=== PATIENT | male | born 1970 | race Caucasian/White ===

== ENCOUNTER 2020-04-27 07:16 | Outpatient (REF) | payer OTHER, SELFPAY | END 2020-04-27 07:17 | disposition home or self-care (01) | LOC: HO.LAB 07:16 | PROVIDERS: Visit Provider Internal Medicine | DX: Z20.828 Contact with and (suspected) exposure to other viral communicable diseases (principal) | CPT/HCPCS: C9803; U0003 ==

== ENCOUNTER 2021-06-01 14:36 | Outpatient (REF) | payer OTHER, SELFPAY ==
[2021-06-01 15:21] LABS: COVID-19 Test Negative (Negative)
== END 2021-06-01 14:37 | disposition home or self-care (01) ==
LOC: HO.LAB 14:36
PROVIDERS: Visit Provider Internal Medicine
DX: Z20.822 Contact with and (suspected) exposure to COVID-19 (principal)
CPT/HCPCS: 36415; 87635; C9803

== ENCOUNTER 2024-09-17 11:02 | Outpatient (AMB) | payer OTHER, SELFPAY ==
--- NOTE | 2024-09-17 11:28 | AM.OFFWIN_ITS ---
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 Patient Tobacco Use Status: Never used Tobacco Allergies No Known Allergies Allergy (Verified 09/17/24 11:30) Do you need a note to return to daycare/school/sports/work: No HPI HPI Comments History of Present Illness Details History of Present Illness - The patient is a 54-year-old male pres enting with abdominal discomfort and anxiety. - He reports abdominal tightness under t he sternum, particularly postprandial, linked to bread consumption, admitting he has a gluten sensitivity (not allergy) and doesn't normally eat gluten. - No exacerbation with physical activity ; soreness noted on palpation. - Also admitted to some lightheadedness and foot tingling, with symptoms improving after rest and relaxation for a few mins today. - Patient concerned about abdominal aort a pathology as his TRAE had issues with this but he has no symptoms suggestive of cardiac or radiating pain. He denies chest pain, chest pain which radiates to his neck shoulder or arm, arm numbness weakness or tingling, upper abdominal pain which radiates to his back or back pain in general. Denies any nausea or episodes of sweating or shortness of breath. - Hypertension is managed pharmacologica lly, has been taking his meds daily, including today. Has no other cardiac history and he does not see a leasing machine tender regularly. He only sees his primary care doctor. He did call his primary care doctor's office and they told him to come here to be evaluated. - Observes lower back soreness post-exer cise, attributed to body weight. - Does admit to issues with anxiety, miguel s not use any medications or therapy to control it. - feels much better now, says all of his symptoms resolved without intervention within 10 minutes. Physical Exam General: Cooperative, healthy appearing, comfortable, no acute distress and well developed Orientation: Patient oriented x3 Limitations: No limitations Head: Normal to inspection Ears: Hearing grossly normal bilaterally Nose: Normal External nose present Face and sinus: Normal facial exam Eyes: Appearance normal, both eyes and all related structures Neck: Normal visual inspection and Yes full ROM Respiratory: Normal respiratory effort and able to speak in complete sentences. Clear to auscultation bilaterally Cardiovascular: Regular rate and rhythm. Normal S1 and S2 GI: soft, no ttp, negative murphys Skin: No rashes or lesions noted Neuro: Patient oriented x3 Extremities: Normal to inspection [facility] Social History Patient Tobacco Use Status: Never used Tobacco Review of Systems Const All systems reviewed & are unremarkable except as noted in HPI and below Physical Exam Vital Signs: Last Vital Signs Pulse 77 09/17/24 11:29 BP 130/80 09/17/24 11:29 Pulse Ox 98 09/17/24 11:29 Oxygen Delivery Method Room Air 09/17/24 11:29 Assessment & Plan Assessment & Plan (1) Anxiety: Code(s): F41.9 - Anxiety disorder, unspecified Plan: VSS, pt well appearing and PE unremarkable. The patient's abdominal discomfort is likely linked to gluten sensitivity s/p eating bread this morning, aggravating postprandial episodes. This, coupled with his anxiety likely was a combination that led to a short panic attack. Anxiety management via hydroxyzine was discussed, noting drowsiness risk. Monitoring signs of abdominal discomfort and anxiety-related symptoms is prioritized. Despite declining an EKG, he was instructed to seek emergent care if serious symptoms arise. Recommended if patient develops any nausea with episodes of sweating, chest pain, chest pain which radiates to his back, neck pain, shoulder pain, arm pain or numbness and tingling in either arm, he should go to the emergency department for a thorough evaluation. None of these symptoms seemed to have happened today and patient feels fine during our visit so I do not think he needs emergency services at this time. Regular hypertension medication continues successfully. Consideration for an abdominal ultrasound or further gastrointestinal exploration was given for comprehensive assessment of discomfort, pending PCP consultation. Emphasized avoiding gluten, practicing relaxation techniques, and sustaining lifestyle modifications to reduce anxiety triggers. Patient was informed and verbally consented to the use of an ambient scribe for clinic note documentation during this visit. Medications: New hydroxyzine HCl 25 mg PO Q6-8H PRN 14 tabs 0RF anxiety Coding Level of Care Code New Pt Level 4 (90520) Diagnoses Anxiety F41.9
[2024-09-17 11:29] VITALS: BP 130/80; PULSE 77; O2SAT 98
--- OUTSIDE RECORDS SUMMARY | 2024-09-17 13:19 | XMS_ITS | Data Portability ---
Author Organization [facility], Main Office Address [address] [facility] [address] [place] [id number] Care Team Providers Care Central Communications Specialist Name Role Phone STACY WHEELER Primary Care Provider [phone] [facility] Food Service Worker Assessment No assessment recorded. Plan of Treatment Reminders Order Date Submit Date Provider Last Modified By Organization Details Last Modified Time Details Appointments FOLLOW UP 2024 03:15P M Stacy Wheeler MD Not available Not available Not available Lab magnes ium, serum or plasma 2023 [facility] (Centralized Electronic Ordering - All Locations), Patient Can Go To The Location Of Their Choice, [facility] 04/07/2024 13:22:03 lipid panel, serum 2023 [email or web address], [address], [address], [place], [address], 04/14/2024 10:05:06 CBC w/ auto diff 2023 [place] [facility], [address], [address], [place], [address], 04/07/2024 13:22:03 CMP, serum or plasma 2023 024 [place] [facility], [address], [address], [place], [address], 04/07/2024 13:22:04 TSH, ultra- sensit demetrius, serum 2023 024 [facility] (Centralized Electronic Ordering - All Locations), Patient Can Go To The Location Of Their Choice, [id number] 04/07/2024 13:22:04 BMP, serum or plasma 2023 024 [place] [facility], [address], [address], [place], [address], 12/13/2023 08:09:27 BMP, serum or plasma 2022 023 [place] [facility], [address], [address], [place], [address], 05/08/2023 15:27:50 CBC w/ auto diff 2022 023 [place] [facility], [address], [address], [place], [address], 04/05/2023 10:30:35 TSH, serum or plasma 2022 023 [place] [facility], [address], [address], [place], [address], 04/05/2023 10:49:32 CMP, serum or plasma 2022 023 [place] [facility], [address], [address], [place], [address], 04/05/2023 10:46:54 celiac diseas e compre hensiv e panel, serum 2022 023 [place] [facility], [address], [address], [place], [address], 04/07/2023 21:06:04 C-reac tive protei n, quanti tative , serum or plasma 2022 023 [place] [facility], [address], [address], [place], [address], 04/05/2023 10:46:56 lipid panel, serum 2022 023 [place] [facility], [address], [address], [place], [address], 04/05/2023 10:47:00 biliru bin, total + direct , serum or plasma 2022 023 [place] [facility], [address], [address], [place], [address], 04/06/2023 00:22:13 biliru bin, qualit ative, urine (OBS) 2022 023 [place] [facility], [address], [address], [place], [address], 04/05/2023 11:39:18 haptog lobin, serum 2022 023 [place] [facility], [address], [address], [place], [address], 04/05/2023 10:46:57 ldh, serum or plasma 2022 023 [place] [facility], [address], [address], [place], [address], 04/05/2023 10:46:58 retic count, blood 2022 023 [place] [facility], [address], [address], [place], [address], 04/05/2023 10:30:37 Referral dermat ologis t referr al - For skin check 2022 023 [email or web address] Not available 10/03/2023 09:09:01 Procedures cerume n remova l (PROC) 2022 023 [place] In-Office Order, Internal Use Only DO Not Attach Compendium DO Not Attach Compendium, Do Not Delete/merge, [id number] 05/08/2023 16:19:07 Surgeries None record ed. Imaging None record ed. Medication Orders Nadine tin 875 mg-125 mg tablet 2023 024 [id number], [address] [place] [address], [place], [address], 04/07/2024 13:07:24 Flonas e Sensim ist 27.5 mcg/ac tuatio n nasal spray, suspen tim 2023 024 [facility], [address] [place] [address], [place], [address], 04/07/2024 13:07:32 Saline Nasal 0.65 % spray aeroso l 2023 024 [facility], [address] [place] [address], [place], [address], 04/07/2024 13:08:11 valsar blanton 80 mg tablet 2022 023 [facility] [address] [place] [address], [place], [address], 07/11/2024 10:16:58 Debrox 6.5 % ear drops 2022 023 [email or web address] [facility] [address] [place] [address], [address], 12/12/2023 14:21:51 valsar blanton 40 mg tablet 2022 023 [facility] [address] [place] [address], [address], 12/12/2023 14:32:41 benzon atate 200 mg capsul e 2022 023 [facility], [address] [place] [address], [place], [address], 05/08/2023 15:00:13 Patient TargetsNo targets recorded. Patient Instructions Encounter Date Encounter Id Patient Instructions Last Modified By Organization Details Last Modified Time 04/02/2023 [id number] elevated blood pressure: care instructions [email or web address] Not available 04/02/2023 14:43:20 Well Visit 50 to 65: Care Instructions ckokar Not available 04/02/2023 14:43:19 starting a weigh t loss plan: care instructions ckokar Not available 04/02/2023 14:43:19 03/26/2024 [id number] Acute Sinusitis: Care Instructions ckokar Not available 03/26/2024 11:08:39 saline nasal washes: care instructions ckokar Not available 03/26/2024 11:08:39 high blood pressure: care instructions ckokar Not available 03/26/2024 11:08:39 learning about high blood pressure ckokar Not available 03/26/2024 11:08:39 04/07/2024 [id number] elevated blood pressure: care instructions ckokar Not available 04/07/2024 13:21:48 Well Visit 50 to 65: Care Instructions ckokar Not available 04/07/2024 13:21:48 starting a weigh t loss plan: care instructions ckokar Not available 04/07/2024 13:21:48 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 Referral for M elanocytic nevus of skin For skin check Referring Physician: Stacy Wheeler, Family Medicine, Encounter Date: 04/02/2023 Results Created Date Observation Date Name Description Value Unit Range Abnormal Flag Note LastModifiedBy Organization Detail LastModifiedTime 04/05/2004/05/2023 COMPL ETE CBC WITH DIFF WBC 4.7 K/mm3 (4.0-1 1.0) Not Available [facility] (Centralized Electronic Ordering - All Locations) Patient Can Go To The Location Of Their Choice, [id number] 04/05/2023 10:30:35 04/05/2004/05/2023 COMPL ETE CBC WITH DIFF RBC 5.21 M/mm3 (4.70- 6.10) Not Available [facility] (Centralized Electronic Ordering - All Locations) Patient Can Go To The Location Of Their Choice, [id number] 04/05/2023 10:30:35 04/05/2004/05/2023 COMPL ETE CBC WITH DIFF HGB 14.8 gm/dL (13.7- 17.1) Not Available [facility] (Centralized Electronic Ordering - All Locations) Patient Can Go To The Location Of Their Choice, 04/05/2023 10:30:35 04/05/2004/05/2023 COMPL ETE CBC WITH DIFF HCT 43.8 % (40.5- 50.0) Not Available [facility] (Centralized Electronic Ordering - All Locations) Patient Can Go To The Location Of Their Choice, 04/05/2023 10:30:35 04/05/2004/05/2023 COMPL ETE CBC WITH DIFF MCV 84.1 fL (80.0- 94.0) Not Available [facility] (Centralized Electronic Ordering - All Locations) Patient Can Go To The Location Of Their Choice, 04/05/2023 10:30:35 04/05/2004/05/2023 COMPL ETE CBC WITH DIFF MCH 28.4 pg (27.0- 34.0) Not Available [facility] (Centralized Electronic Ordering - All Locations) Patient Can Go To The Location Of Their Choice, 04/05/2023 10:30:35 04/05/2004/05/2023 COMPL ETE CBC WITH DIFF MCHC 33.8 g/dL (33.0- 37.0) Not Available [facility] (Centralized Electronic Ordering - All Locations) Patient Can Go To The Location Of Their Choice, 04/05/2023 10:30:35 04/05/2004/05/2023 COMPL ETE CBC WITH DIFF plt 314 K/mm3 (150-4 60) Not Available [facility] (Centralized Electronic Ordering - All Locations) Patient Can Go To The Location Of Their Choice, 04/05/2023 10:30:35 04/05/2004/05/2023 COMPL ETE CBC WITH DIFF RDW-SD 36.2 fL (<47.0 ) Not Available [facility] (Centralized Electronic Ordering - All Locations) Patient Can Go To The Location Of Their Choice, 04/05/2023 10:30:35 04/05/2004/05/2023 COMPL ETE CBC WITH DIFF MPV 9.8 fL (9.4-1 2.4) Not Available [facility] (Centralized Electronic Ordering - All Locations) Patient Can Go To The Location Of Their Choice, 04/05/2023 10:30:35 04/05/2004/05/2023 COMPL ETE CBC WITH DIFF automated NRBC 0.0 #/100 _WBC' s Not Available [facility] (Centralized Electronic Ordering - All Locations) Patient Can Go To The Location Of Their Choice, 04/05/2023 10:30:35 04/05/2004/05/2023 COMPL ETE CBC WITH DIFF abs. NRBC 0.0 K/mm3 Not Available [facility] (Centralized Electronic Ordering - All Locations) Patient Can Go To The Location Of Their Choice, 04/05/2023 10:30:35 04/05/2004/05/2023 COMPL ETE CBC WITH DIFF neut # 1.9 K/mm3 (1.3-7 .0) Not Available [facility] (Centralized Electronic Ordering - All Locations) Patient Can Go To The Location Of Their Choice, 04/05/2023 10:30:35 04/05/2004/05/2023 COMPL ETE CBC WITH DIFF lymph # 2.0 K/mm3 (0.8-3 .1) Not Available [facility] (Centralized Electronic Ordering - All Locations) Patient Can Go To The Location Of Their Choice, 04/05/2023 10:30:35 04/05/2004/05/2023 COMPL ETE CBC WITH DIFF mono# 0.5 K/mm3 (0.4-1 .3) Not Available [facility] (Centralized Electronic Ordering - All Locations) Patient Can Go To The Location Of Their Choice, 04/05/2023 10:30:35 04/05/2004/05/2023 COMPL ETE CBC WITH DIFF eo # 0.2 K/mm3 (0.0-0 .4) Not Available [facility] (Centralized Electronic Ordering - All Locations) Patient Can Go To The Location Of Their Choice, 04/05/2023 10:30:35 04/05/2004/05/2023 COMPL ETE CBC WITH DIFF baso # 0.1 K/mm3 (0.0-0 .1) Not Available [facility] (Centralized Electronic Ordering - All Locations) Patient Can Go To The Location Of Their Choice, 04/05/2023 10:30:35 04/05/2004/05/2023 COMPL ETE CBC WITH DIFF abs. imm gran 0.0 K/mm3 Not Available [facility] (Central[facility] Ordering - All Locations) Patient Can Go To The Location Of Their Choice, 04/05/2023 10:30:35 04/05/2004/05/2023 COMPL ETE CBC WITH DIFF neut 39.8 % (44-76 ) low Not Available [facility] (Centralized Electronic Ordering - All Locations) Patient Can Go To The Location Of Their Choice, 04/05/2023 10:30:35 04/05/2004/05/2023 COMPL ETE CBC WITH DIFF lymph 43.5 % (15-43 ) high Not Available [facility] (Centralized Electronic Ordering - All Locations) Patient Can Go To The Location Of Their Choice, 04/05/2023 10:30:35 04/05/2004/05/2023 COMPL ETE CBC WITH DIFF monocyte 11.1 % (4.5-1 0.5) high Not Available [facility] (Centralized Electronic Ordering - All Locations) Patient Can Go To The Location Of Their Choice, 04/05/2023 10:30:35 04/05/2004/05/2023 COMPL ETE CBC WITH DIFF eo 3.2 % (0-6) Not Available [facility] (Centralized Electronic Ordering - All Locations) Patient Can Go To The Location Of Their Choice, 04/05/2023 10:30:35 04/05/2004/05/2023 COMPL ETE CBC WITH DIFF baso 1.5 % (0-2) Not Available [facility] (Centralized Electronic Ordering - All Locations) Patient Can Go To The Location Of Their Choice, 04/05/2023 10:30:35 04/05/2004/05/2023 COMPL ETE CBC WITH DIFF imm gran 0.9 % Not Available [facility] (Centralized Electronic Ordering - All Locations) Patient Can Go To The Location Of Their Choice, 04/05/2023 10:30:35 04/05/2004/05/2023 RETIC ULOCY TE COUNT retic % 2.4 % (0.9-2 .1) high Not Available [facility] (Centralized Electronic Ordering - All Locations) Patient Can Go To The Location Of Their Choice, 04/05/2023 10:30:37 04/05/2004/05/2023 RETIC ULOCY TE COUNT reticulocyte count, corrected 2.3 % (0.9-2 .1) high Not Available [facility] (Centralized Electronic Ordering - All Locations) Patient Can Go To The Location Of Their Choice, 04/05/2023 10:30:37 04/05/2004/05/2023 RETIC ULOCY TE COUNT reticulocyte production index 2.3 % (1.0-2 .0) high Not Available [facility] (Centralized Electronic Ordering - All Locations) Patient Can Go To The Location Of Their Choice, 04/05/2023 10:30:37 04/05/2004/05/2023 COMPR EHENS DEMETRIUS METAB OLIC PANL glucose 94 mg/dL (70-99 ) Not Available [facility] (Centralized Electronic Ordering - All Locations) Patient Can Go To The Location Of Their Choice, 04/05/2023 10:46:54 04/05/2004/05/2023 COMPR EHENS DEMETRIUS METAB OLIC PANL BUN 12 mg/dL (6-20) Not Available [facility] (Centralized Electronic Ordering - All Locations) Patient Can Go To The Location Of Their Choice, 04/05/2023 10:46:54 04/05/2004/05/2023 COMPR EHENS DEMETRIUS METAB OLIC PANL creatinine 1.0 mg/dL (0.7-1 .2) Not Available [facility] (Centralized Electronic Ordering - All Locations) Patient Can Go To The Location Of Their Choice, 04/05/2023 10:46:54 04/05/2004/05/2023 COMPR EHENS DEMETRIUS METAB OLIC PANL sodium 140 mmol/ L (133-1 45) Not Available [facility] (Centralized Electronic Ordering - All Locations) Patient Can Go To The Location Of Their Choice, 04/05/2023 10:46:54 04/05/2004/05/2023 COMPR EHENS DEMETRIUS METAB OLIC PANL potassium 4.5 mmol/ L (3.6-5 .2) Not Available [facility] (Centralized Electronic Ordering - All Locations) Patient Can Go To The Location Of Their Choice, 04/05/2023 10:46:54 04/05/2004/05/2023 COMPR EHENS DEMETRIUS METAB OLIC PANL chloride 102 mmol/ L (98-10 7) Not Available [facility] (Centralized Electronic Ordering - All Locations) Patient Can Go To The Location Of Their Choice, 04/05/2023 10:46:54 04/05/2004/05/2023 COMPR EHENS DEMETRIUS METAB OLIC PANL bicarbonate 27 mmol/ L (22-29 ) Not Available [facility] (Centralized Electronic Ordering - All Locations) Patient Can Go To The Location Of Their Choice, 04/05/2023 10:46:54 04/05/2004/05/2023 COMPR EHENS DEMETRIUS METAB OLIC PANL anion gap 11 (4-17) Not Available [facility] (Centralized Electronic Ordering - All Locations) Patient Can Go To The Location Of Their Choice, 04/05/2023 10:46:54 04/05/2004/05/2023 COMPR EHENS DEMETRIUS METAB OLIC PANL albumin 5.0 gm/dL (3.4-4 .8) high Not Available [facility] (Centralized Electronic Ordering - All Locations) Patient Can Go To The Location Of Their Choice, 04/05/2023 10:46:54 04/05/2004/05/2023 COMPR EHENS DEMETRIUS METAB OLIC PANL calcium 9.8 mg/dL (8.6-1 0.5) Not Available [facility] (Centralized Electronic Ordering - All Locations) Patient Can Go To The Location Of Their Choice, 04/05/2023 10:46:54 04/05/2004/05/2023 COMPR EHENS DEMETRIUS METAB OLIC PANL bilirubin,to josué 1.6 mg/dL (0-1.2 ) high Not Available [facility] (Centralized Electronic Ordering - All Locations) Patient Can Go To The Location Of Their Choice, 04/05/2023 10:46:54 04/05/2004/05/2023 COMPR EHENS DEMETRIUS METAB OLIC PANL total protein 7.4 gm/dL (6.2-8 .2) Not Available [facility] (Centralized Electronic Ordering - All Locations) Patient Can Go To The Location Of Their Choice, 04/05/2023 10:46:54 04/05/2004/05/2023 COMPR EHENS DEMETRIUS METAB OLIC PANL Ag ratio 2.1 Not Available [facility] (Centralized Electronic Ordering - All Locations) Patient Can Go To The Location Of Their Choice, 04/05/2023 10:46:54 04/05/2004/05/2023 COMPR EHENS DEMETRIUS METAB OLIC PANL AST 19 U/L (0-40) Not Available [facility] (Centralized Electronic Ordering - All Locations) Patient Can Go To The Location Of Their Choice, 04/05/2023 10:46:54 04/05/2004/05/2023 COMPR EHENS DEMETRIUS METAB OLIC PANL alk phos 77 U/L (40-12 9) Not Available [facility] (Centralized Electronic Ordering - All Locations) Patient Can Go To The Location Of Their Choice, 04/05/2023 10:46:54 04/05/2004/05/2023 COMPR EHENS DEMETRIUS METAB OLIC PANL ALT 16 U/L (0-41) Not Available [facility] (Centralized Electronic Ordering - All Locations) Patient Can Go To The Location Of Their Choice, 04/05/2023 10:46:54 04/05/2004/05/2023 COMPR EHENS DEMETRIUS METAB OLIC PANL estimated GFR creatinine 88 mL/mi n/1.7 3_M2 Creat inine based estim ated glome rular filtr ation (eGFR ) in adult s is calcu lated using the Natio nal Kidne y Found ation recom raphael d 2020 CKD-E PI equat ion. Estim ates GFR from serum creat inine , age and sex. Not Available [facility] (Centralized Electronic Ordering - All Locations) Patient Can Go To The Location Of Their Choice, 04/05/2023 10:46:54 04/05/2004/05/2023 C-KAT CTIVE PROTE IN C-reactive protein 0.3 mg/dL (0-0.5 ) Not Available [facility] (Centralized Electronic Ordering - All Locations) Patient Can Go To The Location Of Their Choice, 04/05/2023 10:46:55 04/05/2004/05/2023 HAPTO GLOBI N haptoglobin 161 mg/dL (30-20 0) Not Available [facility] (Centralized Electronic Ordering - All Locations) Patient Can Go To The Location Of Their Choice, 04/05/2023 10:46:57 04/05/2004/05/2023 LDH LDH 193 U/L (94-25 0) Not Available [facility] (Centralized Electronic Ordering - All Locations) Patient Can Go To The Location Of Their Choice, 04/05/2023 10:46:58 04/05/2004/05/2023 LIPID PANEL cholesterol, total 192 mg/dL (<200) Not Available [facility] ([facility] Order[facility] - All Locations) Patient Can Go To The Location Of Their Choice, 04/05/2023 10:47:00 04/05/2004/05/2023 LIPID PANEL triglyceride 142 mg/dL (<150) Not Available [facility] ([facility] - [facility] Locations) Patient Can Go To The Location Of Their Choice, 04/05/2023 10:47:00 04/05/2004/05/2023 LIPID PANEL HDL chol 35 mg/dL (>39) low Not Available [facility] (Centralized Electronic Ordering - All Locations) Patient Can Go To The Location Of Their Choice, 04/05/2023 10:47:00 04/05/2004/05/2023 LIPID PANEL LDL cholesterol, calculated 129 mg/dL (0-130 ) Not Available [facility] (Centralized Electronic Ordering - All Locations) Patient Can Go To The Location Of Their Choice, 04/05/2023 10:47:00 04/05/2004/05/2023 LIPID PANEL non HDL cholesterol (calc) 157 mg/dL (<160) Not Available [facility] ([facility] Order[facility] - All Locations) Patient Can Go To The Location Of Their Choice, 04/05/2023 10:47:00 04/05/2004/05/2023 TSH WITH REFLE X TO FT4 TSH 1.79 uIU/m L (0.4-4 .2) Not Available [facility] (Centralized Electronic Ordering - All Locations) Patient Can Go To The Location Of Their Choice, 04/05/2023 10:49:32 04/05/2004/05/2023 URINE BILIR UBIN urine bilirubin NEGATI VE (neg) Not Available [facility] (Centralized Electronic Ordering - All Locations) Patient Can Go To The Location Of Their Choice, [facility] 04/05/2023 11:39:18 04/05/2004/05/2023 TOTAL AND DIREC T BILIR UBIN bilirubin, direct 0.2 mg/dL (0-0.3 ) Not Available [facility] (Centralized Electronic Ordering - All Locations) Patient Can Go To The Location Of Their Choice, [id number] 04/06/2023 00:22:13 04/05/2004/05/2023 TOTAL AND DIREC T BILIR UBIN indirect bilirubin 1.4 mg/dL (0.0-0 .7) high Not Available [facility] (Centralized Electronic Ordering - All Locations) Patient Can Go To The Location Of Their Choice, [id number] 04/06/2023 00:22:13 04/05/2004/06/2023 TOTAL AND DIREC T BILIR UBIN bili total (with direct) 1.6 mg/dL (0-1.2 ) high Not Available [facility] (Centralized Electronic Ordering - All Locations) Patient Can Go To The Location Of Their Choice, [id number] 04/06/2023 00:22:13 04/05/2004/07/2023 MARGOTH C DISEA SE COMPR EHENS DEMETRIUS tissue transglutami nase IgA 3 Refer ence range : 0 to 3 Unit: U/mL (NOTE ) Negat demetrius 0 - 3 Weak Posit demetrius 4 - 10 Posit demetrius >10 Tissu e Trans gluta steve e (tTG) has been ident ified as the endom ysial antig en. Studi es have demon str- ated that endom ysial IgA antib odies have over 99% speci ficit y for glute n sensi tive enter opath y. Not Available [facility] (Centralized Electronic Ordering - All Locations) Patient Can Go To The Location Of Their Choice, [id number] 04/07/2023 21:06:03 04/05/2004/07/2023 MARGOTH C DISEA SE COMPR EHENS DEMETRIUS tissue tranglutamin ase IgG 6 high Refer ence range : 0 to 5 Unit: U/mL (NOTE ) Negat demetrius 0 - 5 Weak Posit demetrius 6 - 9 Posit demetrius >9 Not Available [facility] (Centralized Electronic Ordering - All Locations) Patient Can Go To The Location Of Their Choice, 04/07/2023 21:06:03 04/05/2004/07/2023 MARGOTH C DISEA SE COMPR EHENS DEMETRIUS deamidated gliadin abs, IgA 82 high Refer ence range : 0 to 19 Unit: units (NOTE ) Negat demetrius 0 - 19 Weak Posit demetrius 20 - 30 Moder ate to Stron g Posit demetrius >30 Not Available [facility] (Centralized Electronic Ordering - All Locations) Patient Can Go To The Location Of Their Choice, 04/07/2023 21:06:03 04/05/2004/07/2023 MARGOTH C DISEA SE COMPR EHENS DEMETRIUS deamidated gliadin abs, IgG 9 Refer ence range : 0 to 19 Unit: units (NOTE ) Negat demetrius 0 - 19 Weak Posit demetrius 20 - 30 Moder ate to Stron g Posit demetrius >30 Not Available [facility] (Centralized Electronic Ordering - All Locations) Patient Can Go To The Location Of Their Choice, 04/07/2023 21:06:03 04/05/2004/07/2023 MARGOTH C DISEA SE COMPR EHENS DEMETRIUS total IgA 283 Refer ence range : 90 to 386 Unit: mg/dL Test perfo rmed by [facility], [address], [place] [address] Not Available [facility] (Centralized Electronic Ordering - All Locations) Patient Can Go To The Location Of Their Choice, 04/07/2023 21:06:03 05/02/2005/02/2023 RETIC ULOCY TE COUNT retic % 1.9 % (0.9-2 .1) Not Available [facility] (Centralized Electronic Ordering - All Locations) Patient Can Go To The Location Of Their Choice, 05/02/2023 10:36:22 05/02/20 23 05/02/2023 RETIC ULOCY TE COUNT reticulocyte count, corrected 1.9 % (0.9-2 .1) Not Available [facility] (Centralized Electronic Ordering - All Locations) Patient Can Go To The Location Of Their Choice, 05/02/2023 10:36:22 05/02/2005/02/2023 RETIC ULOCY TE COUNT reticulocyte production index 1.9 % (1.0-2 .0) Not Available [facility] (Centralized Electronic Ordering - All Locations) Patient Can Go To The Location Of Their Choice, 05/02/2023 10:36:22 05/02/2005/02/2023 IRON & TIBC iron 151 mcg/d L (45-16 0) Not Available [facility] (Centralized Electronic Ordering - All Locations) Patient Can Go To The Location Of Their Choice, 05/02/2023 10:52:04 05/02/2005/02/2023 IRON & TIBC unsaturated iron binding capac 205 mcg/d L (110-3 70) Not Available [facility] (Centralized Electronic Ordering - All Locations) Patient Can Go To The Location Of Their Choice, 05/02/2023 10:52:04 05/02/2005/02/2023 IRON & TIBC est T. iron bind capacity 356 mcg/d L (155-5 30) Not Available [facility] (Centralized Electronic Ordering - All Locations) Patient Can Go To The Location Of Their Choice, 05/02/2023 10:52:04 05/02/2005/02/2023 IRON & TIBC % iron saturation 42 % (20-55 ) Not Available [facility] (Centralized Electronic Ordering - All Locations) Patient Can Go To The Location Of Their Choice, 05/02/2023 10:52:04 05/02/2005/02/2023 COMPL ETE CBC WITH DIFF WBC 5.4 K/mm3 (4.0-1 1.0) Not Available [facility] (Centralized Electronic Ordering - All Locations) Patient Can Go To The Location Of Their Choice, 05/02/2023 13:49:15 05/02/2005/02/2023 COMPL ETE CBC WITH DIFF RBC 5.27 M/mm3 (4.70- 6.10) Not Available [facility] (Centralized Electronic Ordering - All Locations) Patient Can Go To The Location Of Their Choice, 05/02/2023 13:49:15 05/02/2005/02/2023 COMPL ETE CBC WITH DIFF HGB 15.1 gm/dL (13.7- 17.1) Not Available [facility] (Centralized Electronic Ordering - All Locations) Patient Can Go To The Location Of Their Choice, 05/02/2023 13:49:15 05/02/2005/02/2023 COMPL ETE CBC WITH DIFF HCT 44.4 % (40.5- 50.0) Not Available [facility] (Centralized Electronic Ordering - All Locations) Patient Can Go To The Location Of Their Choice, 05/02/2023 13:49:15 05/02/2005/02/2023 COMPL ETE CBC WITH DIFF MCV 84.3 fL (80.0- 94.0) Not Available [facility] (Centralized Electronic Ordering - All Locations) Patient Can Go To The Location Of Their Choice, 05/02/2023 13:49:15 05/02/2005/02/2023 COMPL ETE CBC WITH DIFF MCH 28.7 pg (27.0- 34.0) Not Available [facility] (Centralized Electronic Ordering - All Locations) Patient Can Go To The Location Of Their Choice, 05/02/2023 13:49:15 05/02/2005/02/2023 COMPL ETE CBC WITH DIFF MCHC 34.0 g/dL (33.0- 37.0) Not Available [facility] (Centralized Electronic Ordering - All Locations) Patient Can Go To The Location Of Their Choice, 05/02/2023 13:49:15 05/02/2005/02/2023 COMPL ETE CBC WITH DIFF plt 277 K/mm3 (150-4 60) Not Available [facility] (Centralized Electronic Ordering - All Locations) Patient Can Go To The Location Of Their Choice, 05/02/2023 13:49:15 05/02/2005/02/2023 COMPL ETE CBC WITH DIFF RDW-SD 37.8 fL (<47.0 ) Not Available [facility] (Centralized Electronic Ordering - All Locations) Patient Can Go To The Location Of Their Choice, 05/02/2023 13:49:15 05/02/2005/02/2023 COMPL ETE CBC WITH DIFF MPV 9.7 fL (9.4-1 2.4) Not Available [facility] (Centralized Electronic Ordering - All Locations) Patient Can Go To The Location Of Their Choice, 05/02/2023 13:49:15 05/02/2005/02/2023 COMPL ETE CBC WITH DIFF automated NRBC 0.0 #/100 _WBC' s Not Available [facility] (Centralized Electronic Ordering - All Locations) Patient Can Go To The Location Of Their Choice, 05/02/2023 13:49:15 05/02/2005/02/2023 COMPL ETE CBC WITH DIFF abs. NRBC 0.0 K/mm3 Not Available [facility] (Centralized Electronic Ordering - All Locations) Patient Can Go To The Location Of Their Choice, 05/02/2023 13:49:15 05/02/2005/02/2023 COMPL ETE CBC WITH DIFF neut # 2.7 K/mm3 (1.3-7 .0) Not Available [facility] (Centralized Electronic Ordering - All Locations) Patient Can Go To The Location Of Their Choice, 05/02/2023 13:49:15 05/02/2005/02/2023 COMPL ETE CBC WITH DIFF lymph # 1.9 K/mm3 (0.8-3 .1) Not Available [facility] (Centralized Electronic Ordering - All Locations) Patient Can Go To The Location Of Their Choice, [id number] 05/02/2023 13:49:15 05/02/2005/02/2023 COMPL ETE CBC WITH DIFF mono# 0.6 K/mm3 (0.4-1 .3) Not Available [facility] (Centralized Electronic Ordering - All Locations) Patient Can Go To The Location Of Their Choice, 05/02/2023 13:49:15 05/02/2005/02/2023 COMPL ETE CBC WITH DIFF eo # 0.1 K/mm3 (0.0-0 .4) Not Available [facility] (Centralized Electronic Ordering - All Locations) Patient Can Go To The Location Of Their Choice, 05/02/2023 13:49:15 05/02/2005/02/2023 COMPL ETE CBC WITH DIFF baso # 0.1 K/mm3 (0.0-0 .1) Not Available [facility] (Centralized Electronic Ordering - All Locations) Patient Can Go To The Location Of Their Choice, 05/02/2023 13:49:15 05/02/2005/02/2023 COMPL ETE CBC WITH DIFF abs. imm gran 0.0 K/mm3 Not Available [facility] (Centralized [facility] Ordering - All Locations) Patient Can Go To The Location Of Their Choice, 05/02/2023 13:49:15 05/02/2005/02/2023 COMPL ETE CBC WITH DIFF neut 50.4 % (44-76 ) Not Available [facility] (Centralized Electronic Ordering - All Locations) Patient Can Go To The Location Of Their Choice, 05/02/2023 13:49:15 05/02/2005/02/2023 COMPL ETE CBC WITH DIFF lymph 35.0 % (15-43 ) Not Available [facility] (Centralized Electronic Ordering - All Locations) Patient Can Go To The Location Of Their Choice, 05/02/2023 13:49:15 05/02/2005/02/2023 COMPL ETE CBC WITH DIFF monocyte 10.9 % (4.5-1 0.5) high Not Available [facility] (Centralized Electronic Ordering - All Locations) Patient Can Go To The Location Of Their Choice, 05/02/2023 13:49:15 05/02/2005/02/2023 COMPL ETE CBC WITH DIFF eo 2.4 % (0-6) Not Available [facility] (Centralized Electronic Ordering - All Locations) Patient Can Go To The Location Of Their Choice, 05/02/2023 13:49:15 05/02/2005/02/2023 COMPL ETE CBC WITH DIFF baso 1.1 % (0-2) Not Available [facility] (Centralized Electronic Ordering - All Locations) Patient Can Go To The Location Of Their Choice, 05/02/2023 13:49:15 05/02/2005/02/2023 COMPL ETE CBC WITH DIFF imm gran 0.2 % Not Available [facility] (Centralized Electronic Ordering - All Locations) Patient Can Go To The Location Of Their Choice, 05/02/2023 13:49:15 05/02/2005/03/2023 PERIP HERAL BLOOD SMEAR REVIE W peripheral blood review interp Revie wed by patho elba tWilman buenrostro le perip heral blood smear morph ology Inter prete d by Shira stover MD Not Available [facility] (Centralized Electronic Ordering - All Locations) Patient Can Go To The Location Of Their Choice, [id number] 05/03/2023 11:45:39 05/02/20 23 05/04/2023 RBC FRAGI LITY osmotic fragility Normal (NOTE ) Patie nt red blood cells show howard l osmot ic fragi lity. If the clini lauren suspi cion for hered itary spher ocyto sis is high, furth er valencia sis of RBC band 3 prote in reduc tion by flow cytom etry ([facility] test code 08624 60) is recom raphael d. INTER PRETI VE INFOR MATIO N: Osmot ic Fragi lity For patie nts with acute hemol ysis, a howard l red cell osmot ic fragi lity test resul t canno t exclu de an osmot ic fragi lity abnor malit y since the osmot icall y labil e cells may be hemol yzed and not prese nt. Recom mend testi ng durin g a state of prolo nged homeo stasi s with stabl e hemat ocrit . Test perfo rmed at [facility], [address] [place] [address] Not Available [facility] (Centralized Electronic Ordering - All Locations) Patient Can Go To The Location Of Their Choice, [id number] 05/04/2023 18:07:07 05/08/20 23 05/08/2023 cerum en remov al (PROC ) done by Tori Not Available In-Office Order Internal Use Only DO Not Attach Compendium DO Not Attach Compendium, Do Not Delete/merge, [id number] 05/07/2023 08:23:30 12/12/19 24 12/13/2023 BASIC METAB OLIC PANEL (8) glucose 88 mg/dL 70-99 Not Available [facility] ([facility]) [address] [facility], [place], [address], 12/13/2023 08:09:27 12/12/19 24 12/13/2023 BASIC METAB OLIC PANEL (8) BUN 20 mg/dL 6-24 Not Available [facility] ([facility]) [address] [place], [address], 12/13/2023 08:09:27 12/12/19 24 12/13/2023 BASIC METAB OLIC PANEL (8) creatinine 1.15 mg/dL 0.76-1 .27 Not Available [facility] ([facility]) [address] [facility], [place], [address], 12/13/2023 08:09:27 12/12/19 24 12/13/2023 BASIC METAB OLIC PANEL (8) eGFR 77 mL/mi n/1.7 3 >59 Not Available [facility] ([facility]) [address] [facility], [place], [address], 12/13/2023 08:09:27 12/12/19 24 12/13/2023 BASIC METAB OLIC PANEL (8) BUN/creatini ne ratio 17 9-20 Not Available [facility] ([facility]) [address] [place], [address], 12/13/2023 08:09:27 12/12/19 24 12/13/2023 BASIC METAB OLIC PANEL (8) sodium 137 mmol/ L 134-14 4 Not Available [facility] ([facility]) [address] [place], [address], 12/13/2023 08:09:27 12/12/19 24 12/13/2023 BASIC METAB OLIC PANEL (8) potassium 4.2 mmol/ L 3.5-5. 2 Not Available [facility] ([facility]) [address] [place], [address], 12/13/2023 08:09:27 12/12/19 24 12/13/2023 BASIC METAB OLIC PANEL (8) chloride 101 mmol/ L 96-106 Not Available [facility] ([facility]) [address] [facility], [place], [address], 12/13/2023 08:09:27 12/12/19 24 12/13/2023 BASIC METAB OLIC PANEL (8) carbon dioxide, total 21 mmol/ L 20-29 Not Available [facility] ([facility]) [address] [facility], [place], [address], 12/13/2023 08:09:27 12/12/19 24 12/13/2023 BASIC METAB OLIC PANEL (8) calcium 9.2 mg/dL 8.7-10 .2 Not Available [facility] ([facility]) [address] [facility], [place], [address], 12/13/2023 08:09:27 Result Notes None recorded. Problems Name Problem SNOMED Code Status Onset Date Resolution Date Notes Provider Name and Address Organization Details Recorded Time Diverticulosi s of colon 665019965 Active 2020 Not Available [facility] 3 12:14:47 Obstructive sleep apnea syndrome 06924577 Active 2020 Not Available [facility] 3 12:14:47 Obesity 475854006 Active 2022 Not Available [facility] 3 12:14:47 Body mass index 30+ - obesity 549740942 Active 2022 Not Available [facility] 3 12:14:47 Gilbert's syndrome 71708015 Active 2022 Stacy Wheeler MD [address] [facility] [address], [place], [address] , [facility] 3 08:50:37 Essential hypertension 29165745 Active 2022 Stacy Wheeler MD [address] [facility] [address], [place], [address] , [facility] 3 15:38:44 Problem Notes None recorded. Procedures Surgical History Date Name Laterality Status Provider Name and Address Organization Details Recorded Time 4 treatment of root canal of tooth completed Tori Maria Eugenia-Armando os, [place] [facility] 04/07/2024 13:10:37 4 Colonoscopy completed Shara Castillo [facility] 07/31/2023 08:31:39 extraction of wisdom tooth completed Tori hood MA [facility] 04/02/2023 14:20:23 Imaging Results None recorded. Procedure Notes None recorded. Medical Equipment None Reported. Allergies No known drug allergies Medications Name Sig Start Date Stop Date Status Note LastModified by Organization Details LastModified Time amoxicillin 500 mg capsule 1 po qid for five days 04/07 completed Not Available Not Available Not Available benzonatate 200 mg capsule TAKE 1 CAPSULE 3 TIMES A DAY BY ORAL ROUTE NEEDED FOR 3 DAYS, FOR COUGH. 05/08 completed Not Available Not Available Not Available hydrocodone 5 mg-acetamin ophen 325 mg tablet 1 po prn 04/07 completed Not Available Not Available Not Available valsartan 80 mg tablet TAKE 1 TABLET BY MOUTH EVERY DAY IN THE EVENING FOR 90 DAYS 07/11 completed Not Available Not Available Not Available Ear Drops (carbamide peroxide) 6.5 % INSTILL 5 DROPS INTO AFFECTED EAR(S) BY OTIC ROUTE 2 TIMES PER DAY FOR 4 DAYS STRAIGHT 12/11 completed Not Available Not Available Not Available amoxicillin 875 mg-potassiu m clavulanate 125 mg tablet TAKE 1 TABLET BY MOUTH EVERY 12 HOURS FOR 10 DAYS 04/07 completed Not Available Not Available Not Available valsartan 40 mg tablet TAKE 1 TABLET BY MOUTH EVERY DAY active Not Available Not Available No t Available Flonase Sensimist 27.5 mcg/actuati on nasal spray,suspe nsion TAKE 1 SPRAY EVERY DAY BY NASAL ROUTE AT BEDTIME. 04/07 completed Not Available Not Available Not Available Vitals Date Recorded Body weight Body mass index (BMI) Body height Heart rate Oxygen saturation Oxygen saturation in Arterial blood by Pulse oximetry Body temperature Systolic blood pressure Diastolic blood pressure Systolic blood pressure Diastolic blood pressure Provider Name and Address Organization Details Last Updated DateTime 3 41411.1 4 g 31.3 kg/m2 177.8 cm 78 /min 98 % 98 % 97.7 [degF] 139 mm[Hg] 91 mm[Hg] 136 mm[Hg] 90 mm[Hg] Tori jaquez MA [facility] 3 14:56:22 Date Recorded Body height Body mass index (BMI) Body weight Heart rate Oxygen saturation Oxygen saturation in Arterial blood by Pulse oximetry Body temperature Systolic blood pressure Diastolic blood pressure Provider Name and Address Organization Details Last Updated DateTime 3 177.8 cm 32 kg/m2 711110. 1 g 73 /min 98 % 98 % 98.1 [degF] 131 mm[Hg] 77 mm[Hg] Tori jaquez MA [facility] 3 14:59:55 Date Recorded Systolic blood pressure Diastolic blood pressure Provider Name and Address Organization Details Last Updated DateTime 05/08/2023 142 mm[Hg] 90 mm[Hg] Stacy Wheeler MD [address], [address], [facility] 05/08/2023 15:30:51 Date Recorded Body height Body mass index (BMI) Body weight Oxygen saturation Oxygen saturation in Arterial blood by Pulse oximetry Heart rate Body temperature Systolic blood pressure Diastolic blood pressure Provider Name and Address Organization Details Last Updated DateTime 4 177.8 cm 31.6 kg/m2 08291.3 2 g 100 % 100 % 80 /min 97.7 [degF] 119 mm[Hg] 74 mm[Hg] Ariadne Guillen MA [facility] 4 14:20:59 Date Recorded Body height Body mass index (BMI) Body weight Oxygen saturation Oxygen saturation in Arterial blood by Pulse oximetry Heart rate Body temperature Systolic blood pressure Diastolic blood pressure Provider Name and Address Organization Details Last Updated DateTime 4 177.8 cm 32.1 kg/m2 535359. 69 g 99 % 99 % 77 /min 97.8 [degF] 161 mm[Hg] 96 mm[Hg] Ariadne Guillen MA [facility] 4 10:45:26 Date Recorded Body height Body mass index (BMI) Body weight Heart rate Oxygen saturation Oxygen saturation in Arterial blood by Pulse oximetry Body temperature Systolic blood pressure Diastolic blood pressure Provider Name and Address Organization Details Last Updated DateTime 177.8 cm 32.1 kg/m2 829970. 69 g 77 /min 97 % 97 % 97.5 [degF] 138 mm[Hg] 85 mm[Hg] Tori jaquez MA [facility] 13:06:52 Date Recorded Systolic blood pressure Diastolic blood pressure Provider Name and Address Organization Details Last Updated DateTime 04/07/2024 132 mm[Hg] 82 mm[Hg] Stacy Wheeler MD [address], [place], [address], [facility] 04/07/2024 13:36:01 Social History Question Answer Notes LastModified by Organizat ion Details LastModified Time Tobacco Smoking Status Never Smoker Gloria Harden MA null, [facility] 10/11/2020 14:19:20 What Is Your Level Of Alcohol Consumption? Moderate 7-8 Drinks On Saturdays And Sundays Information not available 04/02/2023 What Is Your Level Of Caffeine Consumption? Moderate 1-2 Cups Of Coffee Daily Information not available 04/07/2024 Are You Currently Employed? Yes Information not available 04/02/2023 What Type Of Diet Are You Following? REGULAR Avoids Too Much Gluten And Dairy Information not available 04/02/2023 Do You Or Have You Ever Used E-cigarettes Or Vape? Never Used Electronic Cigarettes [email or web address] Information not available 10/11/2020 What Is Your Occupation? Self Employed [email or web address] Information not available 10/11/2020 Have You Served In The ? Yes [employer] Information not available 04/02/2023 Are You Or Anyone In Your Household A Health Care Provider Or Emergency Responder? No [email or web address] Information not available 10/11/2020 To The Best Of Your Knowledge Have You Been In Close Proximity To Any Individual Who Tested Positive For COVID-19? No [email or web address] Information not available 10/11/2020 Have You Recently Traveled To A COVID-19 High Risk Area Or Gathering In The Last 10 Days? No Information not available 10/11/2020 How Many Children Do You Have? 2 Mar Information not available 04/07/2024 Are You Sexually Active? Yes Jennie Information not available 04/02/2023 Are You Passively Exposed To Smoke? No Information not available 04/02/2023 Do You Or Have You Ever Used Smokeless Tobacco? Never Used Smokeless Tobacco Information not available 10/11/2020 How Much Tobacco Do You Smoke? No Information not available 10/11/2020 Do You Use Any Illicit Or Recreational Drugs? No Information not available 04/02/2023 How Many Years Have You Smoked Tobacco? 0 Information not available 10/11/2020 Do You Or Have You Ever Used Any Other Forms Of Tobacco Or Nicotine? No Information not available 04/02/2023 Sex: Unknown Functional Status Question Answer Note LastModified by Organizat ion Details LastModified Time Are you able to walk? YESWOREST Information not available 04/02/2023 Are you able to care for yourself? Yes Information not available 04/02/2023 What is your exercise level? Moderate 20 minutes walking on treadmill (also walks at work), 25 minutes of weights; 4-5 x week Information not available 04/07/2024 Mental Status None recorded. Family History Relationship Description Onset Age of this Age Resolved Age Notes LastModified by Organization Details LastModified Time Brother Depressive disorder [email or web address] Not available 2020 14:14:33 Medical History No medical history recorded. Immunizations Vaccine Type Date Status Note Provider Nam e and Address Organization Details Recorded Time Influenza, split virus, quadrivalent, preservative 0 completed Shara church [facility] 05/02/2023 12:51:28 Tdap 1 completed Shara church [facility] 05/02/2023 12:51:28 Influenza, split virus, trivalent, PF 7 completed Shara Castillo ranjit [facility] 05/02/2023 12:51:28 Tdap 3 completed Shara Castillo ranjit [facility] 05/02/2023 12:51:28 Past Encounters Encounter ID Performer Location Encounter Start Date Encounter Closed Date Diagnosis/Indication Diagnosis SNOMED-CT Code Diagnosis ICD10 Code Diagnosis Note [id number] Sandra Phipps Main Office [address] [place] [address] 10/11/2020 14:12:28 10/11/2020 15:51:12 Adult health examination 389196828 Z00.00 Patient was counseled on healthy diet, exercise and nutrition due to Body mass index is 32.1 kg/m? ? ?. Last PSA: Date: Result: Plan: No fhx, no sx, thus will hold screening at this time. Last Colonoscop y: none Date: Result: Plan: No fhx before age 50, screening per guidelines Vaccines: TdAP: Patient to check when his last tdap vaccine was provided. Zoster: PCV13: PPSV23: Influenza: 04/01/2020 Covid: haven't had vaccine. Routine labs today. Immunizati on status utd, flu declined. Will screen based on risk factors. Regular dental and ophtho care advised as well as seat belt and suncreen use. Distracted driving discussed. Medication s reconciled . Fatigue 36418371 R53.83 Screening for cardiovascular system disease 286691624 Z13.6 Patient ne w to provider [id number] 24053 Z76.89 Obstructiv e sleep apnea syndrome 23382613 G47.33 Stop bang score 5Has CPAP could not tolerateWe ight loss advised. Hepatitis C screening 41 5663467 Z11.59 Body mass index 30+ - obesity 019847456 E66.9 - Diet and exercise discussed- Patient made aware of risks of obesity- Encouraged to loose weight. Goal set to loose weight at 1-1.5 Lbs/week- Avoid starchy and fatty food- Encouraged use of green vegetables and fruits Elevated blood-pressure reading without diagnosis of hypertension 595712927 R03.0 Patient had elevated BP in office, no dx. - Asymptomat icWill prescribe bp cuff for patient to check at home and keep log and follow up in 2 weeks for tele health.Yue murdock ons discussed: Low salt diet/weigh t losssigns and symptoms of hypertensi ve emergency discussed and when to go to ED. Impacted c erumen of bilateral ears 4977243021 327856 H61.23 asymptomat ic, will send debrox to preven symptoms. [id number] Stacy Wheeler MD Main Office [address] [facility] [address] [place] [address] 04/02/2023 13:44:24 04/02/2023 15:15:06 Adult health examination 405688241 Z00.00 Patient was counseled on healthy diet, exercise and nutrition due to Body mass index is 31.3 kg/m? ? ?. Last PSA: Date: Result: Plan: No fhx, no sx, screen per usptf guideline. Last Colonoscop y: none Date: Result: Plan: Referral placed, GI office made multiple attempts to reach patient, info given to call. Vaccines: TdAP: due, script provided Zoster rec: Script provided . PCV20: not due Influenza: Declined understand s risk. Covid: encouraged to obtain. Routine labs today. Immunizati on status utd, flu declined. Will screen based on risk factors. Regular dental and ophtho care advised as well as seat belt and suncreen use. Distracted driving discussed. Medication s reconciled . Fatigue 26072162 R53.83 Z00.00 Hyperlipidemia 58540595 E78.5 Z00.00 Total bili phipps above reference range 1391868230 40991 R17 Obstructiv e sleep apnea syndrome 81470089 G47.33 Stop bang score was 5Has CPAP could not tolerateWe ight loss advised. Body mass index 30+ - obesity 494141538 Z68.30 E66.9 - Diet and exercise discussed- Patient made aware of risks of obesity- Encouraged to loose weight. Goal set to loose weight at 1-1.5 Lbs/week- Avoid starchy and fatty food- Encouraged use of green vegetables and fruits Obesity 733529362 E66.9 Varicella vaccination 68 978010 Z23 Administra tion of viral vaccine 66411742 Z23 Essential hypertension 59252160 I10 Did not schedule tele follow up per mikaela, has not been taking home reading, 2 office visit with elevated bp now which suggest HTN will start tx.Advised to get lab 2 weeks after tx.Advised to keep log, technique discussed, advised to bring cuff next visit.Low sodium diet discussedC ounseled on medication adherenceS ome of medication side affects discussed, including but not limited to angioedema .Follow up bp next month. Abdominal pain 39373779 R10.9 Occurs when eating gluten, will do celiac panel and crp first. Impacted c erumen of bilateral ears 8233670775 860471 H61.23 asymptomat ic, will send debrox to preven symptoms.A dvised to avoid qtipis, if still impacted will clean out next visit. Melanocyti c nevus of skin 263821334 D22.9 Cough 33972096 R05.9 recovering from URI sx. Honey advised will give tessalon pearls. Follow up in 1mo. [id number] Stacy Wheeler MD Main Office [address] [address] [place] [address] 05/08/2023 14:49:39 05/08/2023 16:07:35 Essential hypertension 48779200 I10 BP better but still elevated will increase valsartan to 80 mg, follow up 3 mo.Advised to get lab 1 mo after starting new dose.Advis ed to keep log, technique discussed, advised to bring cuff next visit.Low sodium diet discussedC ounseled on medication adherenceF ollow up bp 3 month. Impacted c erumen of bilateral ears 4547614586 452772 H61.23 Ear lavage today Influenza vaccination declined 001084951 Z28.21 [id number] Stacy Wheeler MD Main Office [address] [address] [place] [address] 12/12/2023 13:55:22 12/12/2023 14:48:12 Essential hypertension 09089278 I10 Will continue current dose. He notes some orthostasi s, he is going to half dose to see if sx resolve and monitor bp.Low sodium diet discussedC ounseled on medication adherence [id number] Stacy Wheeler MD Main Office [address] [address] [place] [address] 03/26/2024 10:22:43 03/26/2024 11:10:28 Acute sinusitis 29076182 J01.90 I am treating him for sinusitis based on the physical exam findings and his history. I will start him on Augmentin and have asked him to stop taking the amoxicilli n prescribed by his dentist to avoid therapeuti c duplicatio n. I have also advised him to perform morning saline rinses and have provided instructio ns for this, including blowing his nose after rinsing his sinuses. Additional ly, I recommende d using Flonase spray at night; he was advised to blow his nose before spraying and then leave the spray in. If his symptoms continue to persist, I recommend an over-the-c ounter antihistam ine, such as plain Elvia. The use of humidified air was also advised. I will see him back in our office on April 07. If his symptoms still persist at that time, we can certainly consider additional workup. Essential hypertension 28194123 I10 Did not take med, advised to start meds and monitor BP.He is otherwise asymptomat ic.Follow up on 04/07/24 [id number] Stacy Wheeler MD Main Office [address] [address] 04/07/2024 12:57:14 04/07/2024 13:38:17 Adult health examination 442548308 Z00.00 Patient was counseled on healthy diet, exercise and nutrition due to Body mass index is 32.1 kg/m? ? ?. Last PSA: Date: Result: Plan: No fhx, no sx, screen per usptf guideline. Last Colonoscop y: none Date: 07/25/23 Result: 1 polyp Plan: Per GI screen 10yrs Vaccines: TdAP: 04/30/23 Zoster rec: Script provided again PCV20: not due Influenza: Declined understand s risk. Covid: encouraged updated vaccine Routine labs today. Immunizati on status utd, flu declined. Will screen based on risk factors. Regular dental and ophtho care advised as well as seat belt and suncreen use. Distracted driving discussed. Medication s reconciled . Fatigue 36547005 R53.83 R73.01 Hyperlipidemia 06270856 E78.5 Z00.00 Essential hypertension 65269375 I10 Bp acceptable , will continue valsartan, weight loss encouraged .Follow up in 6mo,. Obstructiv e sleep apnea syndrome 73324234 G47.33 Stop bang score was 5Has CPAP could not tolerateWe ight loss advised. Body mass index 30+ - obesity 431388462 Z68.30 E66.9 - Diet and exercise discussed- Patient made aware of risks of obesity- Encouraged to loose weight. Goal set to loose weight at 1-1.5 Lbs/week- Avoid starchy and fatty food- Encouraged use of green vegetables and fruits Obesity 758655709 E66.9 Varicella vaccination 68 982327 Z23 Melanocyti c nevus of skin 864924901 D22.9 Has apt in Apr. Influenza vaccination declined 501116014 Z28.21 Health Concerns Section Related Observation LastModified by Organization Detai ls LastModified Time None Recorded Concern Status LastModified by Organization Details LastModified Time None Recorded Advance Directives Directive None Recorded Payers Encounter Date Sequence Insurance Name Policy Number Policy Sampson Covered Member ID Sampson Member ID Guarantor Name 04/02/2023 1 [facility]) [id number] 3 Yazmin Demetria [id number] Jeronimo A Demetria 05/08/2023 1 [facility] [id number] 3 Yazmin Demetria [id number] Jeronimo A Demetria 12/12/2023 1 [facility] [id number] 3 Yazmin Demetria [id number] Jeronimo A Demetria 03/26/2024 1 [facility]) [id number] 3 Yazmin Demetria [id number] Jeronimo A Demetria 04/07/2024 1 [facility] [id number] 3 Yazmin Demetria [id number] Jeronimo A Demetria Notes Date Note Type Note Provider Name and Address Organization Details Recorded Time 04/02/2023 text/html Here for hiralnes s visit. Reviewed chronic medications and medical problems. Discussed screening guidelines as well as goals for fitness and weight management.Malaikada y has URI sx, doing better dry cough left. Stacy Wheeler MD [address] [address], [place], [phone], [facility] 04/02/2023 15:26:26 05/08/2023 text/html Hypertension F/UReported bypatient.Associat ed Symptoms:no dizziness; no lightheadedness; no chest pain; no shortness of breath; no palpitations; no edema; no calf pain with exertion Lifestyle:regular exercise; exercises 4 times/week; exercises for 60 minutes/day; limiting/avoiding salt Medications:taking medications as directed; no side effects from medicationNotes:To lerating Valsartan without and side affects with relatively good adherence and tolerance. Follow up visit for BP and ear cleaning. Stacy Wheeler MD [address], [id number], [facility] 05/08/2023 15:34:36 12/12/2023 text/html Hypertension F/UReported bypatient.Associat ed Symptoms:no chest pain; no shortness of breath; no palpitations; no edema; no calf pain with exertion Lifestyle:regular exercise; exercises 4 times/week; exercises for 35 minutes/day; limiting/avoiding salt Medications:taking medications as directed; no side effects from medicationNotes:To lerating Valsartan without and side affects with relatively good adherence and tolerance. Follow up visit for BP and ear cleaning. Stacy Wheeler MD [address], [phone], [facility] 12/12/2023 14:46:27 03/26/2024 text/html Sinusitis/Allerg yR eported bypatient.Location :maxillary; frontal Associated Symptoms:no fever; no hemoptysis; no hematemesis; no feeling of strangulation; no nausea or vomiting;nasal discharge from both nostrils;difficult y breathing;headache back of head;facial pain bilaterally;sinus pain forehead;sore throat;thick phlegm in throat;constantly clearing the throat;nasal discharge;nasal passage blockage bilaterally;ear fullness;nasal itching;pain behind the eyes both; productive cough Onset/Timing:gradu al onset Quality:hoarseness ;congested;colored phlegm Duration:3 weeks Severity:no nosebleeds (epistaxis) Context:no recent upper respiratory infection; no recent sick contacts Risk Factors:no current smoking or tobacco use; no history of smoking; no history of asthma; no chemotherapy; no DM; no HIV; no immunodeficiency;i ncreased stressNotes:Covid test last night was neg.Denies body ache. Stacy Wheeler MD [address] [address], [place], [phone], [facility] 03/26/2024 12:47:47 04/07/2024 text/html Here for wellnes s visit. Reviewed chronic medications and medical problems. Discussed screening guidelines as well as goals for fitness and weight management. Recovering from Sinus infection. Stacy Wheeler MD [address] [address], [place], [phone], [facility] 04/07/2024 13:37:05
== END 2024-09-17 12:32 | disposition home or self-care (01) ==
PROVIDERS: PCP Family Medicine; Visit Provider Physician Assistant
DX: F41.9 Anxiety disorder, unspecified (principal)